=== PATIENT | male | born 1950 | race Caucasian/White ===

== ENCOUNTER 2020-02-25 07:30 | Outpatient (CLI) | payer MEDICARE, SELFPAY ==
--- NOTE | ~2020-02-25 | NM_ITS ---
EXAMINATION: NM bone scan whole body DATE: 02/25/2020 10:33 INDICATION: Prostate cancer. TECHNIQUE: 25 mCi Tc-99m HDP was administered intravenously. Delayed whole-body scintigrams were obt ained. COMPARISON: CT abdomen and pelvis 02/25/2020 FINDINGS: There is no pattern of activity in the bones to suggest metastatic disease. IMPRESSION: 1. No evidence of metastatic disease. Reviewed, dictated and finalized at location A. H FREEZER
--- NOTE | ~2020-02-25 | XR_ITS ---
EXAMINATION: XR chest 2V 02/25/2020 07:55 INDICATION: Hypertension. PROCEDURE: 2 view chest COMPARISON: No prior studies for comparison. FINDINGS: The lungs are clear. The cardiomediastinal silhouette is within normal limits. There are no pleural effusions. There is no pneumothorax suspected. IMPRESSION: 1: NO ACUTE CARDIOPULMONARY DISEASE. Reviewed, dictated and finalized at location B. R INSTRUCTOR
--- NOTE | ~2020-02-25 | CT_ITS ---
EXAMINATION: CT abdomen pelvis w con DATE: 02/25/2020 08:36 INDICATION: Prostate cancer TECHNIQUE: Computed tomography (CT) of the abdomen and pelvis was performed with 100 cc Omnipaque 350 intravenous contrast. The dose-length product was 652.73 mGy-cm. Automated exposure control and iter ative reconstruction technique were employed. Automated exposure control and iterative reconstruction technique were employed. COMPARISON: None. FINDINGS: Lung bases are unremarkable. No significant pleural or pericardial effusion. Heart size nor mal. Fatty infiltration of the liver. The spleen, pancreas, adrenal glands and kidneys are unremarkab le. Gallbladder is present. Nonobstructive bowel gas pattern. Bladder wall is mildly prominent. No ev idence for aortic aneurysm or dissection. No lymphadenopathy. Prostate gland mildly enlarged. No oste olytic or osteoblastic lesions are identified. Mild lumbar spondylosis. IMPRESSION: 1. No evidence for metastatic disease. 2: Mildly thickened bladder wall which may be due to outlet obstruction from enlarged prostate gland or cystitis considered in the appropriate clinical setting. 3: Fatty infiltration of the liver. Reviewed, dictated and finalized at location B. ICULUM DEVELOPER IMPRESSION: 1. No evidence for metastatic disease. 2: Mildly thickened bladder wall which may be due to outlet obstruction from en larged prostate gland or cystitis considered in the appropriate clinical settin g. 3: Fatty infiltration of the liver.
[2020-02-25 08:31] LABS: Estimated Glomerular Filt Rate > 60
== END 2020-02-25 07:31 | disposition home or self-care (01) ==
PROVIDERS: PCP Family Medicine; Visit Provider Urology
DX: C61 Malignant neoplasm of prostate (principal); K76.0 Fatty (change of) liver, not elsewhere classified
CPT/HCPCS: 71046; 74177; 78306; A9561; Q9967

== ENCOUNTER 2020-04-14 13:07 | Outpatient (CLI) | payer MEDICARE, SELFPAY ==
--- NOTE | 2020-04-14 13:09 | ECG_ITS ---
Measurements Intervals Bouse Rate: 57 P: -5 AR: 186 QRS: -11 QRSD: 108 T: 6 QT: 384 QTc: 375 Interpretive Statements SINUS BRADYCARDIA RSR' IN V1 OR V2, CONSIDER RIGHT VENTRICULAR HYPERTROPHY OR RIGHT VCD VOLTAGE CRITERIA FOR LVH BASELINE ARTIFACT- I, II, III, AVR, AVL, V5 BORDERLINE ECG Electronically Signed On 04-14-2020 13:25:54 PUBLIC INFORMATION COORDINATOR by Lester Langford D.O.
[2020-04-14 13:38] LABS: Anion Gap 2 mmol/L (8-16); Blood Urea Nitrogen 17 mg/dL (9-20); Calcium 9.5 mg/dL (8.4-10.2); Carbon Dioxide 35 mmol/L (22-30); Chloride 99 mmol/L (98-107); Estimated Glomerular Filt Rate > 60; Glucose 95 mg/dL (75-110); Potassium 3.9 mmol/L (3.4-5.0); Sodium 136 mmol/L (137-145)
== END 2020-04-14 13:08 | disposition home or self-care (01) ==
PROVIDERS: Anesthesiology; PCP Family Medicine; Visit Provider Urology
DX: Z01.812 Encounter for preprocedural laboratory examination (principal); I10 Essential (primary) hypertension; R94.31 Abnormal electrocardiogram [ECG] [EKG]
CPT/HCPCS: 36415; 80048; 93005

== ENCOUNTER 2020-10-08 10:58 | Outpatient (CLI) | payer MEDICARE, SELFPAY ==
[2020-10-08 19:28] LABS: Prostate Specific Antigen 2.2 ng/mL (< OR = 4.0)
== END 2020-10-08 10:59 | disposition home or self-care (01) ==
LOC: ANHLAB 11:01
PROVIDERS: PCP Family Medicine; Visit Provider Radiology Radiation Oncology
DX: C61 Malignant neoplasm of prostate (principal)
CPT/HCPCS: 36415; 84153

== ENCOUNTER 2021-05-08 15:46 | Outpatient (CLI) | payer MEDICARE, SELFPAY ==
[2021-05-08 16:59] LABS: Prostate Specific Antigen 1.4 ng/mL (< OR = 4.0)
== END 2021-05-08 15:47 | disposition home or self-care (01) ==
LOC: ANHLAB 15:48
PROVIDERS: Radiology Radiation Oncology; PCP Family Medicine; Visit Provider Internal Medicine Hematology & Oncology
DX: C61 Malignant neoplasm of prostate (principal)
CPT/HCPCS: 36415; 84153

== ENCOUNTER 2021-06-26 01:52 | Day surgery (SDC) | payer MEDICARE, SELFPAY ==
[2021-06-17 09:28] VITALS: BMI 30.2
--- NOTE | 2021-06-25 13:53 | WPDANESEPPF ---
Anes - Initial Pre Proc Eval Procedure: Operation Date: 06/26/21 07:30 Proposed Procedures p Screening Colonoscopy - Ham Soto MD Date/Time: 06/25/21 13:53 Surgeon: Ham Soto MD Pre Op Diagnosis: neoplasm screening Patient Data Age: 70 Gender: M Height: 1.78 m Weight: 95.4 kg Allergies Allergy/AdvReac Type Severity Reaction Status Date / Time No Known Drug Allergies Allergy Unknown Unknown Verified 06/26/21 06:22 Home Medications Medication Instructions Recorded Confirmed Type aspirin 81 mg tablet,delayed 81 mg PO DAILY 03/13/19 06/17/21 History release omega 7-gje-ujq-fish oil 1,000 mg 1 cap PO DAILY 03/13/19 06/17/21 History (120 mg-180 mg) capsule cholecalciferol (vitamin D3) 125 mcg PO DAILY 04/11/20 06/17/21 History glucosamine-chondroitin [Osteo 1 tablet PO BID 04/11/20 06/17/21 History Bi-Flex] mv,Ca,gob-ydjp-NX-lycopene 1 tablet PO DAILY 04/11/20 06/17/21 History [Centrum Men] lisinopril 20 1 tablet PO DAILY #90 tablet 11/03/20 06/17/21 Rx mg-hydrochlorothiazide 12.5 mg tablet atorvastatin 20 mg tablet 20 mg PO DAILY #90 tablet 05/07/21 06/17/21 Rx triamcinolone acetonide See Rx Instructions .ROUTE 06/17/21 06/17/21 History .COMPLEX PRN Patient hx anesthesia problems: none Family hx anesthesia problems: none Results Review: All pre-operative results and documents have been reviewed as part of the pre-operative evaluation. [facility] Past Medical History Medical History HTN (hypertension) Hypercholesteremia Surgical History Surgical History H/O stem cell transplant Family History Family History Sibling Family history of lung cancer, Onset Age: 73 Diabetes mellitus Hypertension Family history of elevated blood lipids Mother Family history of malignant neoplasm of breast in first degree relative Family history of malignant neoplasm of brain, Onset Age: 72 Father Patient's father is , Onset Age: 40 Family history of cardiovascular disease Social History Social History Smoking packs per day: 0.5 Smoking cigarettes per day: 10.0 Years smoked: 20 Smoking pack-years: 10.00 Smoking status: Former smoker Tobacco type: cigarettes Smoking end date: 03/28/96 Alcohol intake: current Drinks per week: 2 Substance use type: does not use Living arrangements: alone Spiritual care concerns: No Anes - Eval Final PreProcedure Day of Procedure 06/25/21 13:53 Patient weight: overweight Heart: regular rate and rhythm Lungs: clear to auscultation and normal air movement Airway: Mallampati scale class II Neurological: alert and oriented Last oral intake: >/= 8 hours ASA classification: II Emergent: no Anesthetic plan: proceed Anesthesia type and monitoring: general GIVS Results Review: All pre-operative results and documents have been reviewed as part of the pre-operative evaluation. Informed Consent: The patient's anesthetic plan and its attendant risks and benefits were discussed with the patient/family/POA. Questions were solicited and answers provided to the satisfaction of the patient/family/POA.
[2021-06-26 06:23] VITALS: BP 126/86; PULSE 67; RESP 20; TEMP 35.9; O2SAT 99
[2021-06-26] MEDS: LACTATED RINGERS 1,000 ML 150 ML IV CONT (06:35)
[2021-06-26 07:58] VITALS: BP 144/92; PULSE 64; RESP 18; O2SAT 99
--- NOTE | 2021-06-26 07:58 | WPDGICN ---
Assessment and Plan Assessment and plan (1) Screening for colon cancer: Code(s): Z12.11 - Encounter for screening for malignant neoplasm of colon Status: Acute Assessment and Plan: Patient presents today for screening colonoscopy. Appears to be at average risk for colon polyps. Further recommendations will be given after endoscopy. GI Consult Note Consult date/time: 06/26/21 07:58 HPI: Sha Treviño is a 70 year old male Presents for screening colonoscopy. Patient last colonoscopy was 12 or 13 years ago. Patient reports his current weight appetite bowel movements are normal. He denies abdominal pain. He has had no bleeding. Family history noncontributory. He presents today for neoplasia screening. Review of Systems Review of Systems: All systems reviewed & are unremarkable except as noted in HPI and below PMFSH Past Medical History Medical History HTN (hypertension) Hypercholesteremia Surgical History Surgical History H/O stem cell transplant Family History Family History Sibling Family history of lung cancer, Onset Age: 73 Diabetes mellitus Hypertension Family history of elevated blood lipids Mother Family history of malignant neoplasm of breast in first degree relative Family history of malignant neoplasm of brain, Onset Age: 72 Father Patient's father is , Onset Age: 40 Family history of cardiovascular disease Social History Social History Smoking packs per day: 0.5 Smoking cigarettes per day: 10.0 Years smoked: 20 Smoking pack-years: 10.00 Smoking status: Former smoker Tobacco type: cigarettes Smoking end date: 03/28/96 Alcohol intake: current Drinks per week: 2 Substance use type: does not use Living arrangements: alone Spiritual care concerns: No Meds Home Medications and Allergies Home Medications Medication Instructions Recorded Confirmed Type aspirin 81 mg tablet,delayed 81 mg PO DAILY 03/13/19 06/17/21 History release omega 1-nga-lhz-fish oil 1,000 mg 1 cap PO DAILY 03/13/19 06/17/21 History (120 mg-180 mg) capsule cholecalciferol (vitamin D3) 125 mcg PO DAILY 04/11/20 06/17/21 History glucosamine-chondroitin [Osteo 1 tablet PO BID 04/11/20 06/17/21 History Bi-Flex] mv,Ca,rrr-thfx-UC-lycopene 1 tablet PO DAILY 04/11/20 06/17/21 History [Centrum Men] lisinopril 20 1 tablet PO DAILY #90 tablet 11/03/20 06/17/21 Rx mg-hydrochlorothiazide 12.5 mg tablet atorvastatin 20 mg tablet 20 mg PO DAILY #90 tablet 05/07/21 06/17/21 Rx triamcinolone acetonide See Rx Instructions .ROUTE 06/17/21 06/17/21 History .COMPLEX PRN Allergies Allergy/AdvReac Type Severity Reaction Status Date / Time No Known Drug Allergies Allergy Unknown Unknown Verified 06/26/21 06:22 Vital Signs Vital Signs - 24 hr 06/26/21 06:23 Temperature 96.6 F L Pulse Rate 67 Respiratory Rate 20 Blood Pressure 126/86 Pulse Oximetry 99 Exam Narrative: Physical exam reveals patient to be alert. Vital signs stable. HEENT exam is unremarkable. Patient is anicteric. Lungs are clear to auscultation and percussion. Heart is without murmur or extra sounds. Abdominal exam bowel sounds present soft nontender with no organomegaly. Digital external rectal exam is normal.
[2021-06-26 08:08] VITALS: BP 142/93; PULSE 62; RESP 20; O2SAT 98
[2021-06-26 08:18] VITALS: BP 128/82; PULSE 64; RESP 22; O2SAT 99
== END 2021-06-26 08:29 | disposition home or self-care (01) ==
PROVIDERS: PCP Family Medicine; Visit Provider Internal Medicine Gastroenterology
PROC: 0DJD8ZZ Inspection of Lower Intestinal Tract, Via Natural or Artificial Opening Endoscopic (ICD-10-PCS; CPT 45378; principal; 2021-06-26 07:30)
DX: Z12.11 Encounter for screening for malignant neoplasm of colon (principal); D12.5 Benign neoplasm of sigmoid colon; K64.8 Other hemorrhoids; I10 Essential (primary) hypertension; E78.00 Pure hypercholesterolemia, unspecified; Z87.891 Personal history of nicotine dependence; Z79.82 Long term (current) use of aspirin
CPT/HCPCS: 45385; 88305; J2001; J2704; J7120

== ENCOUNTER 2021-10-27 10:56 | Outpatient (CLI) | payer MEDICARE, SELFPAY ==
[2021-10-27 15:51] LABS: Prostate Specific Antigen 0.7 ng/mL (< OR = 4.0)
== END 2021-10-27 10:57 | disposition home or self-care (01) ==
LOC: ANHLAB 10:58
PROVIDERS: PCP Family Medicine; Visit Provider Radiology Radiation Oncology
DX: C61 Malignant neoplasm of prostate (principal)
CPT/HCPCS: 36415; 84153

== ENCOUNTER 2021-12-01 11:03 | Outpatient (CLI) | payer MEDICARE, SELFPAY ==
--- NOTE | ~2021-12-01 | XR_ITS ---
EXAM: XR shoulder RT min 2V, XR shoulder LT min 2V DATE: 12/01/2021 11:36 HISTORY: pain in top of LT and lateral side of shoulder . COMPARISON: None available. FINDINGS: Normal mineralization. No fracture or dislocation. No lytic or blastic lesion. Mild left a nd moderate right AC joint hypertrophy. Mild bilateral glenohumeral sclerosis and osteophytosis. No e rosion or periosteal change. Soft tissues within normal limits. Bibasilar scar/atelectasis. IMPRESSION: Moderate right and mild left AC joint hypertrophy. Mild bilateral glenohumeral osteoarthr itis. Reviewed, dictated and finalized at location K. IMPRESSION: Moderate right and mild left AC joint hypertrophy. Mild bilateral g lenohumeral osteoarthritis.
== END 2021-12-01 11:04 | disposition home or self-care (01) ==
PROVIDERS: PCP Emergency Medicine; Visit Provider Emergency Medicine
DX: M19.012 Primary osteoarthritis, left shoulder (principal); M19.011 Primary osteoarthritis, right shoulder
CPT/HCPCS: 73030

== ENCOUNTER 2022-03-09 09:53 | Outpatient (CLI) | payer MEDICARE, SELFPAY ==
--- NOTE | 2022-03-09 10:06 | ECHO_ITS ---
Patient Info Name: Sha Treviño Age: 71 years : 1950 Gender: Male Ht: 71 in Wt: 210 lbs BSA: 2.21 m2 HR: 56 bpm BP: 143 / 84 mmHg Technical Quality: Good Exam Date: 03/09/2022 10:23 AM Exam Location: [facility] Pulmonary Patient Status: Outpatient Admit Date: 03/09/2022 Staff Ordering Physician: Suraj Ocasio MD Shipping Support: Shabbir Hercules RDCS, RT Attending Provider: Suraj Ocasio MD Referring Physician: Ninfa HEDRICK; Exam Type: CA echo doppler color flow Study Info Indications R06.02 - Shortness of breath Complete two-dimensional, color flow and Doppler transthoracic echocardiogram is performed. Strain analysis performed. Summary 1. Complete two-dimensional, color flow and Doppler transthoracic echocardiogram is performed. 2. Left ventricular chamber dimension is normal. 3. Left ventricular systolic function is normal, estimated at 60-65%. 4. The left ventricular diastolic function is normal. 5. E/e' 8 is minimally elevated. 6. Global longitudinal strain is normal at -20.4%. 7. There is mild mitral valve regurgitation. 8. There is trace tricuspid valve regurgitation. 9. No pulmonary hypertension, estimated pulmonary arterial systolic pressure is 35 mmHg. 10. Dilated inferior vena cava with >50% collapse upon inspiration consistent with normal right atrial pressure, 10 mmHg. Left Ventricle E/e' 8 is minimally elevated. Global longitudinal strain is normal at -20.4%. Left ventricular chamber dimension is normal. Left ventricular systolic function is normal, estimated at 60-65%. The left ventricular diastolic function is normal. Right Ventricle Right ventricular systolic function is normal and with normal TAPSE 2.4 cm. Right ventricular chamber dimension is normal. Left Atria Left atrial chamber dimension is normal. Right Atria Right atrial chamber dimension is normal. Aortic Valve The aortic valve is trileaflet. There is no aortic valve stenosis. There is no aortic valve regurgitation. Pulmonic Valve There is no pulmonic regurgitation. Mitral Valve There is no mitral valve stenosis. There is mild mitral valve regurgitation. Tricuspid Valve There is trace tricuspid valve regurgitation. No pulmonary hypertension, estimated pulmonary arterial systolic pressure is 35 mmHg. Pericardium/Pleural There is no pericardial effusion. Inferior Vena Cava Dilated inferior vena cava with >50% collapse upon inspiration consistent with normal right atrial pressure, 10 mmHg. Aorta The aortic root size at the sinus of Valsalva is normal. Left Ventricular Outflow Tract Name Value Normal LVOT 2D LVOT Diameter 2.0 cm LVOT Doppler LVOT Peak Gradient 3 mmHg LVOT Mean Gradient 2 mmHg LVOT VTI 22 cm LVOT VTI/AV VTI Ratio 0.8 LVOT Stroke Volume 69 ml LVOT CO 3.9 l/min LVOT CI 1.8 l/min/m2 Mitral Valve
== END 2022-03-09 09:54 | disposition home or self-care (01) ==
LOC: ANHCARD 09:54
PROVIDERS: PCP Emergency Medicine; Visit Provider Emergency Medicine
DX: R60.0 Localized edema (principal); R06.02 Shortness of breath; I34.0 Nonrheumatic mitral (valve) insufficiency
CPT/HCPCS: 93306

== ENCOUNTER 2023-05-24 11:25 | Outpatient (CLI) | payer MEDICARE, SELFPAY ==
[2023-05-24 13:10] LABS: Prostate Specific Antigen 0.2 ng/mL (< OR = 4.0)
== END 2023-05-24 11:26 | disposition home or self-care (01) ==
LOC: ANHLAB 11:28
PROVIDERS: Radiology Radiation Oncology; PCP Emergency Medicine; Visit Provider Internal Medicine Hematology & Oncology
DX: Z85.46 Personal history of malignant neoplasm of prostate (principal)
CPT/HCPCS: 36415; 84153

== ENCOUNTER 2023-11-29 09:14 | Outpatient (CLI) | payer MEDICARE, SELFPAY ==
[2023-11-29 12:32] LABS: Prostate Specific Antigen 0.1 ng/mL (< OR = 4.0)
== END 2023-11-29 09:15 | disposition home or self-care (01) ==
LOC: ANHLAB 09:18
PROVIDERS: Radiology Radiation Oncology; PCP Emergency Medicine; Visit Provider Internal Medicine Hematology & Oncology
DX: Z85.46 Personal history of malignant neoplasm of prostate (principal)
CPT/HCPCS: 36415; 84153

== ENCOUNTER 2024-06-04 14:50 | Outpatient (CLI) | payer MEDICARE, SELFPAY ==
[2024-06-04 17:22] LABS: Prostate Specific Antigen 0.1 ng/mL (< OR = 4.0)
--- OUTSIDE RECORDS SUMMARY | 2024-06-04 17:25 | XMS_ITS | Clinical Summary ---
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 Gender Identity Not on file Sexual Orientation Not on file Obstetrics History Last Filed Vital Signs Vital Sign Reading Time Taken Comments Blood Pressure 129/82 04/03/2020 1:07 PM BREAKER TABLE WORKER Pulse 68 04/03/2020 1:07 PM BREAKER TABLE WORKER Temperature 36.9 C (98.4 F) 04/03/2020 1:07 PM BREAKER TABLE WORKER Respiratory Rate - - Oxygen Saturation - - Inhaled Oxygen Concentration - - Weight 95.3 kg (210 lb) 04/03/2020 1:07 PM BREAKER TABLE WORKER patient stated Height 177.8 cm (5' 10 ) 04/03/2020 1:0 7 PM BREAKER TABLE WORKER patient stated Body Mass Index 30.13 04/03/2020 1:07 PM BREAKER TABLE WORKER Plan of Treatment Not on file Insurance MEDICARE [facility] MEDICARE [facility] Care Teams Project Asst Relationship Specialty Start Date End Date Harvey Srivastava MD [address] [place] [address] PCP - General 01/07/11
--- OUTSIDE RECORDS SUMMARY | 2024-06-04 17:25 | XMS_ITS | Data Portability ---
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 At 12 weeks post initial biological intervention, discussed PRP/fat booster injection. Would like to obtain laboratory studies for the optimization of stem cells. Would like to prescribe a shoe lift for right leg to improve pelvic obliquity. Referred patient to [facility]3 for functional movement screening. Patient given information regarding same. May follow up if wishes to pursue. Return for worsening symptoms. Greater than 45 minutes was spent with the patient in direct evaluation and subsequent care planning. History, exam and diagnostic information was communicated with Dr. Morrell and he was directly involved in the treatment decision. [email or web address] Not available 04/11/2019 17:01:01 Plan of Treatment Reminders Order Date Submit Date Provider Last Modified By Organization Details Last Modified Time Details Appointments None recorded . Lab None recorded . Referral None recorded . Procedures None recorded . Surgeries None recorded . Imaging XR, lumbar spine - room 6 020 04/11/19 20 [email or web address] Not available 0 16:58:15 Medication Orders None recorded . Patient TargetsNo targets recorded. Patient InstructionsNo instructions recorded. Reason for Referral None Reported. Results Created Date Observation Date Name Description Value Unit Range Abnormal Flag Note LastModifiedBy Organization Detail LastModifiedTime 04/12/19 20 04/17/2019 testo stero ne, free + total , serum testosterone , total, MS 551 NG/dL 250-11 00 Men with clini wilner signi fican t hypog onada l sympt oms and testo stero ne value s repea tedly in the range of the 200-3 00 ng/dL or less, may benef it from testo stero ne treat ment after adequ ate risk and benef its couns eling . For addit ional infor walter anderson e refer to http: //[facility] [place] stdia gnost ics.c om/fa q/Tot al Testo stero neLCM SMS (This link is being provi ded for infor jemma nal/e ducat ional purpo ses only. ) This test was devel oped and its deep tical perfo rmanc e maite cteri stics have been deter mined by [employer]. It has not been clear ed or appro carola by the FDA. This assay has been valid ated pursu ant to the CLIA regul ation s and is used for clini arthur purpo ses. Not Available [employer] [address] [address] [place], [address], 04/18/2019 00:11:00 04/12/1904/17/2019 testo stero ne, free + total , serum testosterone , free 57.0 pg/mL 35.0-1 55.0 This test was devel oped and its deep tical perfo rmanc e maite cteri stics have been deter mined by [employer] ostic [employer]. It has not been clear ed or appro carola by the FDA. This assay has been valid ated pursu ant to the CLIA regul ation s and is used for clini arthur purpo ses. Not Available [employer] [facility] [address] [place], [address], 04/18/2019 00:11:00 04/12/1904/17/2019 vitam in D, 25-hy droxy , total , serum vitamin D,25-oh,tota l,ia 48 NG/mL 30-100 normal Vitam in D Statu s 25-OH Vitam in D: Defic iency : <20 ng/mL Insuf ficie ncy: 20 - 29 ng/mL Optim al: > or = 30 ng/mL For 25-OH Vitam in D testi ng on patie nts on D2-rondon pplem entat ion and patie nts for whom quant itati on of D2 and D3 fract ions is requi red, the Quest Assur eD(TM ) 25-OH VIT D, (D2,D 3), LC/MS /MS is recom daniele d: order code [id number] (gertrude ents >2yrs ). For more infor jemma leo on this test, go to: http: //[facility] [place] stdia gnost ics.c om/fa q/FAQ 163 (This link is being provi ded for infor matio nal/e ducat ional purpo ses only. ) Not Available [address], [address], 04/18/2019 00:11:00 08/03/19 20 08/08/2019 vitam in D, 25-hy droxy , total , serum vitamin D,25-oh,tota l,ia 63 NG/mL 30-100 normal Vitam in D Statu s 25-OH Vitam in D: Defic iency : <20 ng/mL Insuf ficie ncy: 20 - 29 ng/mL Optim al: > or = 30 ng/mL For 25-OH Vitam in D testi ng on patie nts on D2-rondon pplem entat ion and patie nts for whom quant itati on of D2 and D3 fract ions is requi red, the Quest Assur eD(TM ) 25-OH VIT D, (D2,D 3), LC/MS /MS is recom daniele d: order code [id number] (gertrude ents >2yrs ). See Note 1 Note 1 For addit ional infor walter anderson refer to http: //[facility] [place].Guero stDia gnost ics.c om/fa q/FAQ 199 (This link is being provi ded for infor matio nal/ educa oleg l purpo ses only. ) Not Available [employer] [address] [address] [place], [address], 08/08/2019 20:05:22 08/03/19 20 08/13/2019 testo stero ne, free + total , serum testosterone , total, MS 740 NG/dL 250-11 00 Men with clini wilner signi fican t hypog onada l sympt oms and testo stero ne value s repea tedly in the range of the 200-3 00 ng/dL or less, may benef it from testo stero ne treat ment after adequ ate risk and benef its couns eling . For addit ional infor walter anderson e refer to http: //[facility] [place] stdia gnost ics.c om/fa q/Tot al Testo stero neLCM SMS (This link is being provi ded for infor jemma nal/e ducat ional purpo ses only. ) This test was devel oped and its deep tical perfo rmanc e maite cteri stics have been deter mined by [employer]. It has not been clear ed or appro carola by the FDA. This assay has been valid ated pursu ant to the CLIA regul ation s and is used for clini arthur purpo ses. Not Available [employer] [address] [address] [place], [address], 08/13/2019 14:19:54 08/03/1908/13/2019 testo stero ne, free + total , serum testosterone , free 93.4 pg/mL 35.0-1 55.0 This test was devel oped and its deep tical perfo rmanc e maite cteri stics have been deter mined by [employer] o[employer]. It has not been clear ed or appro carola by the FDA. This assay has been valid ated pursu ant to the CLIA regul ation s and is used for clini arthur purpo ses. Not Available [facility] [address] [address] [place], [address], 08/13/2019 14:19:54 08/03/1908/13/2019 PSA, serum or plasm a PSA, total 3.6 NG/mL < or = 4.0 normal The total PSA value from this assay syste m is stand ardiz ed again st the WHO stand kriss. The test resul t will be appro ximat ynes 20% lower when nino red to the equim olar- stand ardiz ed total PSA (Jiang man Coult er). Nino rison of seria l PSA resul ts shoul d be inter prete d with this fact in mind. This test was perfo rmed using the [employer] ns chemi lumin escen t metho d. Value s obtai rani from diffe rent assay metho ds canno t be used inter shah eably . PSA level s, regar dless of value , shoul d not be inter prete d as absol match-e-be-nash-she-wish band evide nce of the prese nce or absen ce of disea se. Not Available [employer] [address] [address] [place], [address], 08/13/2019 14:19:55 04/11/1910/15/2016 MRI, lumba r spine , w/o contr ast No observ ation record ed. [email or web address] Not Available 2019 17:50:35 Result Notes None recorded. Problems No Known Problems Procedures Surgical History Date Name Laterality Status Provider Name and Address Organization Details Recorded Time 04/11/19 20 Generic Procedure completed Eric Kramer [facility] 04/11/2019 16:58:45 Eye Surgery completed [facility] 04/11/2019 16:08:05 Other completed [facility] 04/11/2019 16:08:05 Hernia Repair completed [facility] 04/11/2019 16:08:05 Colonoscopy completed [employer] [facility] 04/11/2019 16:08:06 Imaging Results Imaging Date Name Status LastModified by Organiz ation Details LastModified Time 10/15/2016 MRI, lumbar spine, w/o contrast completed [email or web address] Information not available 04/11/2019 17:50:35 Procedure Notes None recorded. Medical Equipment None Reported. Allergies No known drug allergies Medications Name Sig Start Date Stop Date Status Note LastModified by Organization Details LastModified Time atorvastatin 20 mg tablet active Not Available Not Available Not Available clindamycin HCl 300 mg capsule Take 3 capsules (total of 900mg) po one hour prior to procedure . One time dose. active Not Available Not Available No t Available lisinopril 20 mg-hydrochloro thiazide 12.5 mg tablet active Not Available Not Available No t Available hydrocodone 5 mg-acetaminoph en 325 mg tablet Take 1 tablet every 6 hours by oral route as needed. active Not Available Not Available No t Available triamcinolone acetonide 0.1 % topical cream active Not Available Not Available Not Available testosterone cypionate 200 mg/mL intramuscular oil INJECT 0.5ML IN THE MUSCLE EVERY WEEK active Not Available Not Available No t Available Vitals Date Recorded Body height Body mass index (BMI) Body weight Heart rate Systolic blood pressure Diastolic blood pressure Provider Name and Address Organization Details Last Updated DateTime 0 177.8 cm 30.1 kg/m2 01654.4 g 76 /min 111 mm[Hg] 65 mm[Hg] [facility] 0 16:07:15 Date Recorded Body height Body mass index (BMI) Body weight Heart rate Systolic blood pressure Diastolic blood pressure Provider Name and Address Organization Details Last Updated DateTime 0 177.8 cm 30.1 kg/m2 85744.4 g 75 /min 115 mm[Hg] 72 mm[Hg] Lizz Koffi [facility], [facility] 0 12:38:03 Social History Question Answer Notes LastModified by Organizat ion Details LastModified Time Tobacco Smoking Status Former Smoker Lizy Blancas [facility] [employer] [facility] 04/11/2019 16:07:56 What Is Your Level Of Alcohol Consumption? Occasional Information not available 04/11/2019 Auto Related Injury? No Information not available 04/11/2019 What Is Your Level Of Caffeine Consumption? Moderate Information not available 04/11/2019 How Much Tobacco Do You Chew? None Information not available 04/11/2019 Diabetes No Information n ot available 04/11/2019 What Type Of Diet Are You Following? REGULAR Information not available 04/11/2019 High Blood Pressure Yes Information not available 04/11/2019 High Cholesterol Yes Informa tion not available 04/11/2019 Marital Status Informati on not available 04/11/2019 General Stress Level Low Information not available 04/11/2019 Work Related Injury? No Information not available 04/11/2019 Sex: Unknown Functional Status Question Answer Note LastModified by Organizat ion Details LastModified Time What is your exercise level? Occasional Information not available 04/11/2019 Mental Status None recorded. Family History Relationship Description Onset Age of this Age Resolved Age Notes LastModified by Organization Details LastModified Time Father Heart disease Not available 03/28 16:07:34 Brother Carcinoma of prostate Not available 03/28 16:07:34 Sister Malignant tumor of lung Not available 03/28 16:07:34 Medical History Condition Response Other Cancer N HIV or AIDS N Coronary Artery Disease N Gout N Kidney Stones N Hyperthyroidism N Breast Cancer N Hernia N Head Trauma/Injury N Lung Cancer N Hypothyroidism N Lung Disease N Blood Clots N COPD N Depression N Pacemaker N Anxiety Disorder N Arthritis N Kidney Cancer N Cancer N Stroke N Leg or Foot Ulcers N Neck Injury N High Cholesterol Y Liver Disease N Rheumatoid Arthritis N Fibromyalgia N Headaches N Kidney Disease N Heart Problems N Prostate Cancer N Migraines N Thyroid Problems N Anemia N Multiple Sclerosis N Ulcers N Heart Attack (ND) N Diabetes N Bleeding Disorder N Seizures/Epilepsy N Tuberculosis N Urinary Tract Infection N Back Problems N Diverticulitis N Asthma N Lupus N Peripheral Vascular Disease N Sleep Disorder N GERD/Reflux N Hepatitis N Aneurysm N Thyroid Cancer N Heart Disease N Pulmonary Embolism N Hypertension Y Osteoporosis N Past Encounters Encounter ID Performer Location Encounter Start Date Encounter Closed Date Diagnosis/Indication Diagnosis SNOMED-CT Code Diagnosis ICD10 Code Diagnosis Note [id number] Eric Kramer [facility] [address] [facility] [place] [address] 04/11/2019 15:34:59 05/01/2019 16:32:36 Low back pain 251529931 M54.5 Arthropath y of lumbar facet joint 474332961 M46.96 Degenerati on of lumbar intervertebral disc 74892397 M51.36 Degenerati ve scoliosis 3377352921 48393 M41.80 Pelvic obliquity 3684034 8 M95.5 [id number] Lizy Blancas [facility] [address] [place] [address] 05/21/2019 12:03:49 05/21/2019 14:08:51 Health Concerns Section Related Observation LastModified by Organization Detai ls LastModified Time None Recorded Concern Status LastModified by Organization Details LastModified Time None Recorded Advance Directives Directive None Recorded Payers Encounter Date Sequence Insurance Name Policy Number Policy Headley Covered Member ID Headley Member ID Guarantor Name 04/11/2019 1 [place] Sha P McElligott [id number] Sha P McElligott 04/11/2019 2 [place] [id number] Sha P McElligott [id number] Sha P McElligott 05/21/2019 1 [place] Sha P McElligott [id number] Sha P McElligott 05/21/2019 2 [place] [id number] Sah P McElligott [id number] Sha P McElligott Notes Date Note Type Note Provider Name and Address Organization Details Recorded Time 04/11/2019 text/html 68 y/o male presents with right sided low back pain. Patient reports pain has been worsening for the past two years. Low back pain is localized on the right side that he describes as intermittent, aching, sharp, and stabbing, associated with catching, grinding, popping, stiffness, and spasming. Worsens with transitional movements, prolonged standing and sitting. He ambulates on the treadmill every morning with fatigability at approximately 15 minutes. No radicular pain, weakness, numbness, tingling, bowel or bladder changes. No prior injections or surgery. No prior shoe lift.Patient also complains of mid thoracic back pain that he considers less severe than low back pain. Pain Score Pain scale from 0-10, 10 being the worst 7 Chief Complaint Why are you here today? Back Pain When did the problem start 2 or more years Pain scale from 0-10, 10 being the worst 7 Over time is the problem getting better or worse? Worse Pain Description Aching Intermittent Sharp Stabbing Time of day when pain is at its worst All Day Long What makes the pain better? Bed Rest Have you seen another doctor for this? Yes Name of the doctor Stephanie Srivastava, Family Physiciain Previous Methods Tried to Manage Pain Pain Meds Has patient ever had injections? No Imported from [facility] on 04/11/2019 Eric banks, [facility] 04/11/2019 17:01:09 05/21/2019 text/html Consult for low back pain and discussion for possible treatment. Lizy banks, [facility] 05/21/2019 14:08:05
--- OUTSIDE RECORDS SUMMARY | 2024-06-04 17:25 | XMS_ITS | Continuity of Care Document ---
Author Organization [facility] Address [address] [place] [address] Phone Care Team Providers Care Submarine Operator Name Role Phone Kang OD, Ham Unavailable Unavailable Procedures Procedure Date Eye Exam & Treatment Refraction Eye Exam Established Pt Eye Exam & Treatment Refraction Advance Directives Directive Yes / No Effective Date File Name No Information Encounters Encounter Description Practice Location Reason(s) For Visit Diagnoses Date Provider Providers Copied on Encounter [facility], [address] [place] [address] [address], [place], [place], [id number], tel:[phone] [facility] No Information Mar-0 6-200 9 Kang OD Ham. [address] , [address], [place], [place], [facility], . tel:[phone] [facility], [address] [place] [address] [address], [place], [place], [id number], [place] tel:[phone] [facility] No Information Feb-2 0-200 9 Kang OD Ham. [address], [place], [place], [facility], . tel:[phone] [facility], [address] [place] [address] [address], [place], [place], [id number], tel:[phone] [facility] No Information Feb-0 8-200 8 Kang OD Ham. [address] , [address], [place], [address], [place]. tel:[phone] Family History Family Member Type Diagnosis Age At Onset No Information Payers Payer name Insurance type Covered democrat ID Authordileep martin(s) [employer] SOI CI [id number] Social History Type Description Quantity Date Captured [...]
--- OUTSIDE RECORDS SUMMARY | 2024-06-04 17:25 | XMS_ITS | Referral Summary ---
Author Organization [facility] Address [address] [place] [address] Care Team Providers Care Blood Donor Recruiter Name Role Phone Harvey Srivastava MD Primary Care Provider [phone] Allergies No known active allergies Medications No known medications Active Problems No known active problems Social History Tobacco Use Types Packs/Day Years Used Date Smoking Tobacco: Former Smokeless Tobacco: Never Personal Safety Answer Date Recorded Getting School Help Needed Not on file 06/10 Sex and Gender Information Value Date Recorded Sex Assigned at Not on file Legal Sex Male 9:01 AM PEOPLE MANAGER Gender Identity Not on file Sexual Orientation Not on file Last Filed Vital Signs Vital Sign Reading Time Taken Comments Blood Pressure 129/82 04/03/2020 1:07 PM PEOPLE MANAGER Pulse 68 04/03/2020 1:07 PM PEOPLE MANAGER Temperature 36.9 C (98.4 F) 04/03/2020 1:07 PM PEOPLE MANAGER Respiratory Rate - - Oxygen Saturation - - Inhaled Oxygen Concentration - - Weight 95.3 kg (210 lb) 04/03/2020 1:07 PM PEOPLE MANAGER patient stated Height 177.8 cm (5' 10 ) 04/03/2020 1:0 7 PM PEOPLE MANAGER patient stated Body Mass Index 30.13 04/03/2020 1:07 PM PEOPLE MANAGER Plan of Treatment Not on file Insurance MEDICARE [facility] MEDICARE [facility] Care Teams Blood Donor Recruiter Relationship Specialty Start Date End Date Harvey Srivastava MD [address] [place] [address] PCP - General 01/07/11
--- OUTSIDE RECORDS SUMMARY | 2024-06-04 17:25 | XMS_ITS | Clinical Summary ---
Author Organization [facility] Address [address] [place] [place] [address] Phone Care Team Providers Care Veterinary Technician Instructor Name Role Phone Unavailable Primary Care Provider Unavailabl e Allergies No known active allergies Medications atorvastatin (LIPITOR) 20 mg tablet Take 20 mg by mouth daily at bedtime. Active lisinopril-hydr oCHLOROthiazide (ZESTORETIC) 20-12.5 mg tablet Take 1 Tablet by mouth daily. Active triamcinolone acetonide (KENALOG) 0.1 % Ointment Apply to affected area 2 times daily. Active multivit-min/FA /lycopen/lutein (CENTRUM SILVER MEN ORAL) Take by mouth. Activ e Cholecalciferol , Vitamin D3, (Vitamin D3) 10 mcg (400 unit) capsule Take 400 Units by mouth. Active ciprofloxacin HCl (CIPRO) 500 mg tabletIndicatio ns:I do want both cipro and cefuroxime filled. Thanks. Take 1 Tablet (500 mg) by mouth 2 times daily. Start the night before the procedure as directed. 4 Tablet 1 Active cefUROXime axetil (CEFTIN) 500 mg tabletIndicatio ns:I do want both cipro and cefuroxime filled. Thanks. Take 1 Tablet (500 mg) by mouth every 12 hours. Start the night before the procedure as directed. 4 Tablet 1 Active HYDROcodone-anya taminophen (NORCO) 5-325 mg tabletIndicatio ns:Prostate cancer (CMS/HCC) Take 1 Tablet by mouth every 6 hours as needed for Pain, Moderate or Pain, Severe. Max Daily Amount: 4 Tablets 5 Tablet Active Immunizations Immunization Administration Dates Next Due Influenza Seasonal Unspecified Formulation IM Family History Medical History Relation Name Comments Heart Disease Other Prostate Cancer Other Relation Name Status Comments Other Social History Tobacco Use Types Packs/Day Years Used Date Smoking Tobacco: Former Smokeless Tobacco: Never Alcohol Use Standard Drinks/Week Comments Yes 0 (1 standard drink = 0.6 oz pur e alcohol) Sex and Gender Information Value Date Recorded Sex Assigned at Not on file Legal Sex Male 11:15 AM AGRICULTURAL ENGINEERING TECHNICIANS Gender Identity Not on file Sexual Orientation Not on file Last Filed Vital Signs Vital Sign Reading Time Taken Comments Blood Pressure 130/70 05/20/2020 12:10 PM AGRICULTURAL ENGINEERING TECHNICIANS Pulse 58 05/20/2020 12:10 PM AGRICULTURAL ENGINEERING TECHNICIANS Temperature 36 C (96.8 F) 05/20/2020 12:10 PM AGRICULTURAL ENGINEERING TECHNICIANS Respiratory Rate 18 05/20/2020 12:10 PM AGRICULTURAL ENGINEERING TECHNICIANS Oxygen Saturation 98% 05/20/2020 12:10 PM AGRICULTURAL ENGINEERING TECHNICIANS Inhaled Oxygen Concentration - - Weight 97.3 kg (214 lb 6.4 oz) 05/20/2020 8:57 A M AGRICULTURAL ENGINEERING TECHNICIANS Height 177.8 cm (5' 10 ) 05/20/2020 8:57 AM AGRICULTURAL ENGINEERING TECHNICIANS Body Mass Index 30.76 05/20/2020 8:57 AM AGRICULTURAL ENGINEERING TECHNICIANS Plan of Treatment Health Maintenance Due Date Last Done Comments DTAP/TDAP/TD VACCINES (1 - Tdap) 1969 COLORECTAL SCREENING 10/24/1995 Colorectal Cancer Screening 10/24/1995 FIT-DNA Q 3 years 10/24/1995 FIT/FOBT Q 1 year 10/24/1995 Flex Sig/CT Colonography Q 5 years 10/24/1995 PNEUMOCOCCAL VACCINE 50+ YEA RS (1 of 1 - PCV) 2000 ZOSTER VACCINE (1 of 2) 2000 INFLUENZA VACCINE (#1) 2023 12/01/2019, 2019 RSV VACCINE (60+ or ) (1 - 1-dose 75+ series) 2025 Medical Devices Implanted Type Area Data Analysis Intern Device Identifier Shelf Expiration Date Model / Serial / Lot Imp Spaceoar 10ml [id number] - [id number] Implanted:Qty : 1 on 05/20/2020 by Lorenzo Reyes MD at [facility] Other N/A: Prostate AU[employer]IX [id number] 10/30/2021 -210 / / [id number] Riton Hansen Implanted:Qty : 1 on 05/20/2020 by Lorenzo Reyes MD at [facility] N/A: Prostate 01/26/2024 [id number] / / [id number] Insurance MEDICARE PART A AND B BCBS SUPP Advance Directives For more information, please contact: [phone] * Full Code (Latest Code Status on File) Date Activated Date Inactivated Comments 05/20/2020 8:53 AM 05/20/2020 3:07 PM
== END 2024-06-04 14:51 | disposition home or self-care (01) ==
LOC: ANHLAB 14:51
PROVIDERS: PCP Internal Medicine; Visit Provider Radiology Radiation Oncology
DX: Z85.46 Personal history of malignant neoplasm of prostate (principal)
CPT/HCPCS: 36415; 84153

== ENCOUNTER 2024-07-20 11:18 | Outpatient (CLI) | payer MEDICARE, SELFPAY ==
--- NOTE | ~2024-07-20 | XR_ITS ---
Right Shoulder Technique: AP and axillary views were obtained. Clinical History: Pain Findings: No fracture or dislocation is seen. Osseous alignment is anatomic. The glenohumeral and acr omioclavicular joint spaces are preserved. Soft tissues are unremarkable. Impression: Unremarkable right shoulder radiographs. Reviewed, dictated and finalized at [facility]. Impression: Unremarkable right shoulder radiographs.
== END 2024-07-20 11:19 | disposition home or self-care (01) ==
LOC: GOSHIMG 11:19
PROVIDERS: PCP Nurse Practitioner Family; Visit Provider Nurse Practitioner Family
DX: M25.511 Pain in right shoulder (principal)
CPT/HCPCS: 73030

== ENCOUNTER 2024-12-10 13:13 | Outpatient (CLI) | payer MEDICARE, SELFPAY ==
--- OUTSIDE RECORDS SUMMARY | 2008-05-31 03:30 | XMS_ITS | Continuity of Care Document ---
Author Organization [facility] Address [address] [place] [address] Phone Care Team Providers Care Gear Keeper Name Role Phone Kang OD, Ham Unavailable Unavailable Procedures Procedure Date Eye Exam & Treatment Refraction Eye Exam Established Pt Eye Exam & Treatment Refraction Advance Directives Directive Yes / No Effective Date File Name No Information Encounters Encounter Description Practice Location Reason(s) For Visit Diagnoses Date Provider Providers Copied on Encounter [facility], [address] [place] [address] [address], [place], [place], [id number], tel:[phone] [facility] No Information Mar-0 6-200 9 Kang OD Ham. [address], [place], [place], [facility], . tel:[phone] [facility], [address] [place] [address] [address], [place], [place], [id number], [place] tel:[phone] [facility] No Information Feb-2 0-200 9 Kang OD Hma. [address], [place], [place], [facility], . tel:[phone] [facility], [id number] [place] [address] [address], [place], [place], [id number], tel:[phone] [facility] No Information Feb-0 8-200 8 Kang OD Ham. [address] , [address], [place], [address], [place]. tel:[phone] Family History Family Member Type Diagnosis Age At Onset No Information Payers Payer name Insurance type Covered libertarian ID Authordileep martin(s) [employer] SOI CI [id number] Social History Type Description Quantity Date Captured Comments Sex Male Smoking Status No Information Chief Complaint And Reason For Visit No Information Reason For Referral Reason For Referral No Information History Of Present Illness Encounter Date Complaint History Of Prese nt Illness No Information Functional Status Date Functional Assessmen t No Information Instructions Date Instruction Additional Infor mation No Information Assessments Type Assessment Date No Information Patient Care Teams Name Effective Dates (start - stop) Status Members No Information
--- OUTSIDE RECORDS SUMMARY | 2024-12-10 15:44 | XMS_ITS | Clinical Summary ---
Author Organization [facility] Address [address] [place] [id number] Care Team Providers Care Operations Officer Trust Department Name Role Phone Harvey Srivastava MD Primary Care Provider [phone] Allergies No known active allergies Medications No known medications Active Problems No known active problems Social History Tobacco Use Types Packs/Day Years Used Date Smoking Tobacco: Former Smokeless Tobacco: Never Personal Safety Answer Date Recorded Getting School Help Needed Not on file 06/10 Sex and Gender Information Value Date Recorded Sex Assigned at Not on file Legal Sex Male 9:01 AM PROTOTYPE ENGINEER MANAGER Gender Identity Not on file Sexual Orientation Not on file Obstetrics History Last Filed Vital Signs Vital Sign Reading Time Taken Comments Blood Pressure 129/82 04/03/2020 1:07 PM PROTOTYPE ENGINEER MANAGER Pulse 68 04/03/2020 1:07 PM PROTOTYPE ENGINEER MANAGER Temperature 36.9 C (98.4 F) 04/03/2020 1:07 PM PROTOTYPE ENGINEER MANAGER Respiratory Rate - - Oxygen Saturation - - Inhaled Oxygen Concentration - - Weight 95.3 kg (210 lb) 04/03/2020 1:07 PM PROTOTYPE ENGINEER MANAGER patient stated Height 177.8 cm (5' 10) 04/03/2020 1:0 7 PM PROTOTYPE ENGINEER MANAGER patient stated Body Mass Index 30.13 04/03/2020 1:07 PM PROTOTYPE ENGINEER MANAGER Plan of Treatment Not on file Insurance MEDICARE [facility] MEDICARE [facility] Care Teams Operations Officer Trust Department Relationship Specialty Start Date End Date Harvey Srivastava MD [address] [place] [address] PCP - General 01/07/11
--- OUTSIDE RECORDS SUMMARY | 2024-12-10 15:44 | XMS_ITS | Clinical Summary ---
Author Organization [facility] Address [address] 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 Gender Identity Not on file Sexual Orientation Not on file Last Filed Vital Signs Vital Sign Reading Time Taken Comments Blood Pressure 130/70 05/20/2020 12:10 PM PRESSING DEPARTMENT SUPERVISOR Pulse 58 05/20/2020 12:10 PM PRESSING DEPARTMENT SUPERVISOR Temperature 36 C (96.8 F) 05/20/2020 12:10 PM PRESSING DEPARTMENT SUPERVISOR Respiratory Rate 18 05/20/2020 12:10 PM PRESSING DEPARTMENT SUPERVISOR Oxygen Saturation 98% 05/20/2020 12:10 PM PRESSING DEPARTMENT SUPERVISOR Inhaled Oxygen Concentration - - Weight 97.3 kg (214 lb 6.4 oz) 05/20/2020 8:57 A M PRESSING DEPARTMENT SUPERVISOR Height 177.8 cm (5' 10) 05/20/2020 8:57 AM PRESSING DEPARTMENT SUPERVISOR Body Mass Index 30.76 05/20/2020 8:57 AM PRESSING DEPARTMENT SUPERVISOR Plan of Treatment Health Maintenance Due Date Last Done Comments DTAP/TDAP/TD VACCINES (1 - Tdap) 1969 Traditional Medicare (ACO) A nnual Wellness Visit 1969 COLORECTAL SCREENING 10/24/1995 Colorectal Cancer Screening 10/24/1995 FIT-DNA Q 3 years 10/24/1995 FIT/FOBT Q 1 year 10/24/1995 Flex Sig/CT Colonography Q 5 years 10/24/1995 PNEUMOCOCCAL VACCINE 50+ YEA RS (1 of 1 - PCV) 2000 ZOSTER VACCINE (1 of 2) 2000 INFLUENZA VACCINE (#1) 2024 12/01/2019, 2019 RSV VACCINE (60+ or ) (1 - 1-dose 75+ series) 2025 Medical Devices Implanted Type Area Tubing Mill Operator Device Identifier Shelf Expiration Date Model / Serial / Lot Imp Spaceoar 10ml So-2101 - [id number] Implanted:Qty : 1 on 05/20/2020 by Lorenzo Reyes MD at [facility] Other N/A: Prostate AUGM[employer]IX [id number] 10/30/2021 SO-2100 / / [id number] Riton Monroe Implanted:Qty : 1 on 05/20/2020 by Lorenzo Reyes MD at [facility] N/A: Prostate 01/26/2024 [id number] / / [id number] Insurance MEDICARE PART A AND B BC SUPP Advance Directives For more information, please contact: [phone] * Full Code (Latest Code Status on File) Date Activated Date Inactivated Comments 05/20/2020 8:53 AM 05/20/2020 3:07 PM
[2024-12-11 10:09] LABS: PSA, Free <0.02 ng/mL
== END 2024-12-10 13:14 | disposition home or self-care (01) ==
PROVIDERS: PCP Internal Medicine; Visit Provider Radiology Radiation Oncology
DX: Z85.46 Personal history of malignant neoplasm of prostate (principal)
CPT/HCPCS: 84153; 84154

== ENCOUNTER 2025-01-09 13:44 | Outpatient (CLI) | payer MEDICARE, SELFPAY ==
--- NOTE | ~2025-01-09 | MR_ITS ---
EXAMINATION: MR shoulder RT wo con DATE: 01/09/2025 14:29 INDICATION: Pain in right shoulder. TECHNIQUE: Magnetic resonance imaging (MRI) of the right shoulder was performed without intravenous contrast. Sequences included axial PD-weighted FS FSE, coronal oblique PD-weighted FS FSE and T2-weighted FS FSE, and sagittal oblique T2-weighted FS FSE and T1-weighted FSE. COMPARISON: Right shoulder radiographs 07/20/2024 FINDINGS: Coracoacromial arch: The acromion undersurface is curved in morphology (type II). There is severe acromioclavicular joint osteoarthritis including inferiorly directed osteophytes with capsular hypertrophy, soft tissue edema, and extensive edema-like marrow signal intensity. There is mild subacromial/subdeltoid bursitis. Rotator cuff: There is mild supraspinatus and infraspinatus tendinopathy. Teres minor tendon is normal. There is mild subscapularis tendinopathy. There is no asymmetric fatty atrophy of the rotator cuff muscle bellies. Biceps tendon and glenoid labrum: Biceps tendon is in bicipital groove. Intra-articular biceps tendon is normal. There is degeneration of the superior glenoid labrum without well-defined tear. Fluid: There is a small glenohumeral joint effusion. Bones/cartilage: The glenoid cartilage is normal. Humeral head cartilage is normal. IMPRESSION: 1. Severe acromioclavicular joint osteoarthritis with prominent inflammation. 2. Mild rotator cuff tendinopathy. No tear. 3. Mild subacromial/subdeltoid bursitis. 4. Small glenohumeral joint effusion. Reviewed, dictated and finalized at location E.
== END 2025-01-09 13:45 | disposition home or self-care (01) ==
LOC: MICIMG 13:45
PROVIDERS: PCP Internal Medicine; Visit Provider Nurse Practitioner
DX: M19.011 Primary osteoarthritis, right shoulder (principal); M75.31 Calcific tendinitis of right shoulder; M75.51 Bursitis of right shoulder; M25.411 Effusion, right shoulder
CPT/HCPCS: 73221